=== PATIENT | male | born 1985 | race African-American/Black ===

== ENCOUNTER 2020-04-08 02:34 | Emergency (ER) | payer OTHER ==
[2020-04-08 03:40] VITALS: TEMP 98.3; BMI 30.4
[2020-04-08 04:18] VITALS: BP 130/85; PULSE 75
== END 2020-04-08 04:19 | disposition home or self-care (01) ==
LOC: JER 02:34
DX: H92.01 Otalgia, right ear (principal); J02.9 Acute pharyngitis, unspecified
CPT/HCPCS: 99282-25